=== PATIENT | male | born 1975 | race Caucasian/White ===

== ENCOUNTER 2017-05-20 23:14 | Emergency (ER) | payer OTHER, SELFPAY ==
[2017-05-20 23:40] VITALS: PULSE 78
[2017-05-20] MEDS ORDERED: DECADRON 10MG INJ. IM ONE (23:46)
--- NOTE | 2017-05-20 23:46 | ERPHSYRPT ---
- History of Present Illness Source: patient, family () Exam Limitations: clinical condition Physician History: "Patient with spreading blotchy elevated erythematous rash right lower posterior flank area with spread down into the gluteal area today. There are small water blisters involved with it. No previous history of such and no history significant of insect bite poison plant contact. Does not itch and burn no fever or chills and no pain. Timing/Duration: day(s) (3-4) Quality: other (no real discomfort) Location: other (As noted above right sacral iliac area down to right gluteal area) Possible Causes: no cause identified Associated Symptoms: blisters, change in skin texture, rash, No edema, No fever , No nasal congestion, No numbness, No pallor, No paresthesia, No petechiae Allergies/Adverse Reactions: Penicillins Allergy (Verified 05/20/17 23:16) Home Medications: Lisinopril/Hydrochlorothiazide [Lisinopril-Hctz 20-12.5 mg Tab] 1 tab PO DAILY 05/20/17 [History] Metoprolol Tartrate 50 mg [Lopressor 50 MG] 50 mg PO BID 05/20/17 [History ] Pravastatin Sodium 40 mg PO HS 05/20/17 [History] Hx Tetanus, Diphtheria Vaccination/Date Given: Yes (2006) - Review of Systems Constitutional: No Symptoms Eyes: No Symptoms Ears, Nose, & Throat: No Symptoms Respiratory: No Symptoms Cardiac: No Symptoms Abdominal/Gastrointestinal: No Symptoms Genitourinary Symptoms: No Symptoms Musculoskeletal: No Symptoms Skin: Rash (as noted in history of present illness) - Past Medical History Pertinent Past Medical History: Yes Neurological History: No Pertinent History ENT History: No Pertinent History Cardiac History: High Cholesterol, Hypertension Respiratory History: No Pertinent History Endocrine Medical History: No Pertinent History Musculoskeletal History: No Pertinent History GI Medical History: No Pertinent History History: No Pertinent History Psycho-Social History: No Pertinent History Male Reproductive Disorders: No Pertinent History - Past Surgical History Past Surgical History: No Neuro Surgical History: No Pertinent History Cardiac: No Pertinent History Respiratory: No Pertinent History Gastrointestinal: No Pertinent History Genitourinary: No Pertinent History Musculoskeletal: No Pertinent History Male Surgical History: No Pertinent History Other Surgical History: states he has had no surgeries - Social History Smoking Status: Former smoker Exposure to second hand smoke: Yes Drug Use: none Patient Lives Alone: Yes - Nursing Vital Signs Nursing Vital Signs: Initial Vital Signs Temperature 98.6 F 05/20/17 23:39 Pulse Rate 78 05/20/17 23:39 Respiratory Rate 20 05/20/17 23:39 Blood Pressure 150/77 05/20/17 23:39 O2 Sat by Pulse Oximetry 99 05/20/17 23:39 Pain Scale Pain Intensity 0 - Physical Exam General Appearance: no apparent distress Eye Exam: PERRL/EOMI Ears, Nose, Throat Exam: normal ENT inspection Neck Exam: normal inspection, non-tender, supple Respiratory Exam: normal breath sounds, lungs clear, No chest tenderness Cardiovascular Exam: regular rate/rhythm, normal heart sounds Gastrointestinal/Abdomen Exam: soft, normal bowel sounds, No tenderness Rectal Exam: deferred Back Exam: rash (raised to fluid erythematous rash from the belt line area right sacroiliac and down to the right proximal gluteal area with small vesi which were intact.) Extremity Exam: normal inspection, normal range of motion Neurologic Exam: alert, oriented x 3, cooperative, nml station & gait Skin Exam: rash (as noted above) Lymphatic Exam: No adenopathy SpO2 Interpretation: normal SpO2: 99 Oxygen Delivery: Room Air Ordered Tests: Medication Summary Discontinued Medications Generic Name Dose Route Start Last Admin Trade Name Elke PRN Reason Stop Dose Admin Dexamethasone Sodium Phosphate 10 mg 05/20/17 23:46 05/20/17 23:59 Decadron 10mg Inj. IM 05/20/17 23:47 10 mg STAT ONE Administration Dexamethasone Sodium Phosphate Confirm 05/20/17 23:51 Decadron 10mg Inj. Administered 05/20/17 23:52 Dose 10 mg .ROUTE .STK-MED ONE Hydrocortisone 30 gm 05/20/17 23:47 05/21/17 00:00 Cortisone 1% Cream TP 05/20/17 23:48 30 gm STAT ONE Administration - Progress Progress: unchanged Progress Note: 05/21/17 04:06Etiology of rashes unclear at this time as it is not pruritic or painful. Does seem to be spreading from the initial area has a raised erythematous confluent base with small vesicles superficially. Best diagnosis at this point is some form of contact dermatitis treated with IM Decadron Medrol Dosepak topical steroids with emphasis on criteria for return to ER and the importance of follow-up. Counseled pt/family regarding: diagnosis, need for follow-up - Departure Time of Disposition: 23:58 Departure Disposition: Home Clinical Impression: Contact dermatitis Qualifiers: Contact dermatitis type: unspecified Contact dermatitis trigger: unspecified trigger Qualified Code(s): L25.9 - Unspecified contact dermatitis, unspecified cause Condition: Stable Critical Care Time: No Referrals: PERRI CHAUDHARY [Primary Care Provider] - 05/22/17 Instructions: Contact Dermatitis Additional Instructions: It appears to be some kind of contact dermatitis to either a poison plant or material. Apply 1 percent hydrocortisone cream to the area 3 times a day. May keep covered with ABD dressings that may be purchased at pharmacies. If not significantly improved by Thursday follow-up with medical provider. Return to emergency room for fever chills severe pain.start Medrol cortisone prescription in the morning. Prescriptions: Methylprednisolone Packet [Medrol Dosepack] 4 mg PO UD #1 packet
[2017-05-20] MEDS ORDERED: CORTISONE 1% CREAM TP ONE (23:47)
[2017-05-20] MEDS ORDERED: DECADRON 10MG INJ. ONE (23:51)
[2017-05-21 00:20] VITALS: BP 153/81
[2017-05-21 04:07] VITALS: O2SAT 99
== END 2017-05-21 00:20 | disposition home or self-care (01) ==
LOC: ED 23:14
DX: L25.9 Unspecified contact dermatitis, unspecified cause (principal)
CPT/HCPCS: 96372; 99284; J1100; A9270-GY

== ENCOUNTER 2021-12-14 09:46 | Emergency (ER) | payer BC, OTHER ==
[2021-12-14] MEDS ORDERED: Adacel Vial IM ONE ×2 (10:11→10:12)
--- NOTE | 2021-12-14 10:22 | ERPHSYRPT ---
- History of Present Illness Time Seen by Provider: 12/14/21 10:05 Source: patient Exam Limitations: no limitations Patient Subjective Stated Complaint: Pt states " I was taking the trash out and cut my hand on something that was in the trash. I don't know if it was glass or anything." Triage Nursing Assessment: Pt alert and orientated x3, pt is not utd on tetanus shot, bleeding is controlled and R hand is bandaged up upon triage. Once pt in room and after wound cleaned up the wound is 1.5 cm Physician History: Patient is a 46-year-old male who was picking up a trash bag when something in the bag lacerated his palm of his right hand about 1.5 cm at the base of the index finger. He is not sure what it was his tetanus is not current. He has no other injuries or problems. Timing/Duration: today Quality: painful Severity: moderate Location: hands Associated Symptoms: denies symptoms Allergies/Adverse Reactions: Penicillins Allergy (Mild, Verified 12/14/21 09:57) Home Medications: Lisinopril/Hydrochlorothiazide [Lisinopril-Hctz 20-12.5 mg Tab] 1 tab PO DAILY 05/20/17 [History] Metoprolol Tartrate 50 mg [Lopressor 50 MG] 50 mg PO BID 05/20/17 [History] Pravastatin Sodium 40 mg PO HS 05/20/17 [History] Hx Tetanus, Diphtheria Vaccination/Date Given: No (2006) Hx Influenza Vaccination/Date Given: No Hx Pneumococcal Vaccination/Date Given: No Immunizations Up to Date: No Travel Risk - International Travel Have you traveled outside of the country in past 3 weeks: No - Coronavirus Screening Are you exhibiting any of the following symptoms?: No Close contact with a COVID-19 positive Pt in past 14-21 Days: No - Vaccine Status Have you recieved a Covid-19 vaccination: No - Review of Systems Constitutional: No Fever, No Chills Eyes: No Symptoms Ears, Nose, & Throat: No Symptoms Respiratory: No Cough, No Dyspnea Cardiac: No Chest Pain, No Edema, No Syncope Abdominal/Gastrointestinal: No Abdominal Pain, No Nausea, No Vomiting, No Diarrhea Genitourinary Symptoms: No Dysuria Musculoskeletal: No Back Pain, No Neck Pain Skin: No Rash Neurological: No Dizziness, No Focal Weakness, No Sensory Changes Psychological: No Symptoms Endocrine: No Symptoms All Other Systems: Reviewed and Negative - Past Medical History Pertinent Past Medical History: Yes Neurological History: No Pertinent History ENT History: No Pertinent History Cardiac History: High Cholesterol, Hypertension Respiratory History: No Pertinent History Endocrine Medical History: No Pertinent History Musculoskeletal History: No Pertinent History GI Medical History: No Pertinent History History: No Pertinent History Psycho-Social History: No Pertinent History Male Reproductive Disorders: No Pertinent History - Past Surgical History Past Surgical History: No Neuro Surgical History: No Pertinent History Cardiac: No Pertinent History Respiratory: No Pertinent History Gastrointestinal: No Pertinent History Genitourinary: No Pertinent History Musculoskeletal: No Pertinent History Male Surgical History: No Pertinent History Other Surgical History: states he has had no surgeries - Social History Smoking Status: Former smoker Exposure to second hand smoke: Yes Drug Use: none Patient Lives Alone: Yes - Nursing Vital Signs Nursing Vital Signs: Initial Vital Signs Temperature 98.4 F 12/14/21 09:57 Pulse Rate 64 12/14/21 09:57 Respiratory Rate 16 12/14/21 09:57 Blood Pressure 147/75 12/14/21 09:57 O2 Sat by Pulse Oximetry 100 12/14/21 09:57 Pain Scale Pain Intensity 3 - Physical Exam General Appearance: no apparent distress, alert Eye Exam: PERRL/EOMI, eyes nml inspection Ears, Nose, Throat Exam: normal ENT inspection, pharynx normal, moist mucous membranes Neck Exam: normal inspection, non-tender, supple, full range of motion Respiratory Exam: airway intact, No respiratory distress Back Exam: normal inspection, normal range of motion, No CVA tenderness, No vertebral tenderness Extremity Exam: normal inspection, normal range of motion Neurologic Exam: alert, oriented x 3, cooperative, normal mood/affect, sensation nml, No motor deficits Skin Exam: normal color, warm, dry, laceration (Laceration superficial 1.5 cm right palm surface at the base of the index finger) SpO2 Interpretation: normal SpO2: 100 O2 Delivery: Room Air Procedures - Laceration/Wound Repair Right Hand Time of Procedure: 10:21 Wound Location: Right, hand Wound Length (cm): 1.5 Wound's Depth, Shape: superficial, linear Wound Explored: clean Irrigated: Yes Hibiclens Prep: Yes Anesthesia: 1% Lidocaine Volume Anesthetic (ccs): 2 Wound Debrided: minimal Wound Repaired With: sutures Suture Size/Type: 5-0, nylon Number of Sutures: 2 Layer Closure?: No Sterile Dressing Applied?: Yes Splint Applied?: No - Course Nursing assessment & vital signs reviewed: Yes Ordered Tests: Medication Summary Discontinued Medications Generic Name Dose Route Start Last Admin Trade Name Freq PRN Reason Stop Dose Admin Diphtheria/Tetanus/Acell Pertussis 0.5 ml 12/14/21 10:11 12/14/21 10:16 Tdap --Diph,Pertuss(Acell),Tet Vac/Pf 0.5 Ml Vial IM 12/14/21 10:12 0.5 ml .ONCE ONE Administration Diphtheria/Tetanus/Acell Pertussis Confirm 12/14/21 10:12 Tdap --Diph,Pertuss(Acell),Tet Vac/Pf 0.5 Ml Vial Administered 12/14/21 10:13 Dose 0.5 ml IM .STK-MED ONE - Progress Progress: improved - Departure Departure Disposition: Home Clinical Impression: Laceration of right hand Condition: Stable Critical Care Time: No Referrals: PERRI CHAUDHARY [Primary Care Provider] - Follow up/PCP as directed Instructions: Laceration Repair With Stitches (DC)
[2021-12-14 10:39] VITALS: BP 168/70; PULSE 68; O2SAT 98
== END 2021-12-14 10:45 | disposition home or self-care (01) ==
LOC: ED 09:46
DX: S61.411A Laceration without foreign body of right hand, initial encounter (principal); W45.8XXA Other foreign body or object entering through skin, initial encounter; Y93.E9 Activity, other interior property and clothing maintenance; E78.5 Hyperlipidemia, unspecified; I10 Essential (primary) hypertension; Z79.899 Other long term (current) drug therapy
CPT/HCPCS: 12001; 90471; 90715; 99283

== ENCOUNTER 2023-04-18 12:14 | Emergency (ER) | payer BC, OTHER ==
[2023-04-18 12:31] VITALS: BP 159/79; PULSE 67; O2SAT 100
[2023-04-18] MEDS ORDERED: Kenalog-40 IM ONE (14:00)
--- NOTE | 2023-04-18 14:00 | ERPHSYRPT ---
- History of Present Illness Time Seen by Provider: 04/18/23 12:25 Source: patient Exam Limitations: no limitations Patient Subjective Stated Complaint: Pt injured left foot last week and it started to swell and hurt 2 days ago and it started out on the lateral side and the pain and swelling has moved to the medial side and big toe Triage Nursing Assessment: Pt was brought to the ER by his daughter, hypertensive, rates pain as 3/10, foot appears to look like he has gout, pt has had episodes of gout in the past, pt's foot swelled quite large while he was at work due to being on his feet, pt thought that the foot swelled due to him injuring it last week, pulses normal, pain with palpatation, pain with weightbearing, doesn't appear to be in any distress Physician History: Patient is a 48-year-old white male who presents with a complaint of injury to his left foot approximately a week ago on the lateral aspect. He seemed to do better and then in the last 24 hours has noted redness and swelling over the first metatarsal phalangeal joint of that foot. He does have a history of acute gouty arthritis. Method of Injury: direct blow Occurred: yesterday Quality: aching, burning Severity of Pain-Max: moderate Severity of Pain-Current: moderate Lower Extremities Pain: 1st toe: left Modifying Factors: Improves With: nothing Associated Symptoms: other (Pain with palpation) Allergies/Adverse Reactions: Penicillins Allergy (Mild, Verified 04/18/23 12:30) Home Medications: Lisinopril/Hydrochlorothiazide [Lisinopril-Hctz 20-12.5 mg Tab] 1 tab PO DAILY 0 05/20/17 [History] Metoprolol Tartrate 50 mg [Lopressor 50 MG] 50 mg PO BID 05/20/17 [History] Pravastatin Sodium 40 mg PO HS 05/20/17 [History] Hx Tetanus, Diphtheria Vaccination/Date Given: No (2006) Hx Influenza Vaccination/Date Given: No Hx Pneumococcal Vaccination/Date Given: No Travel Risk - International Travel Have you traveled outside of the country in past 3 weeks: No - Coronavirus Screening Are you exhibiting any of the following symptoms?: No Close contact with a COVID-19 positive Pt in past 14-21 Days: No - Vaccine Status Have you recieved a Covid-19 vaccination: No - Review of Systems Constitutional: No Fever, No Chills Eyes: No Symptoms Ears, Nose, & Throat: No Symptoms Respiratory: No Cough, No Dyspnea Cardiac: No Chest Pain, No Edema, No Syncope Abdominal/Gastrointestinal: No Abdominal Pain, No Nausea, No Vomiting, No Diarrhea Genitourinary Symptoms: No Dysuria Musculoskeletal: Joint Pain, No Back Pain, No Neck Pain Skin: No Rash Neurological: No Dizziness, No Focal Weakness, No Sensory Changes Psychological: No Symptoms Endocrine: No Symptoms All Other Systems: Reviewed and Negative - Past Medical History Pertinent Past Medical History: Yes Neurological History: No Pertinent History ENT History: No Pertinent History Cardiac History: High Cholesterol, Hypertension Respiratory History: No Pertinent History Endocrine Medical History: No Pertinent History Musculoskeletal History: No Pertinent History GI Medical History: No Pertinent History History: No Pertinent History Psycho-Social History: No Pertinent History Male Reproductive Disorders: No Pertinent History - Past Surgical History Past Surgical History: No Neuro Surgical History: No Pertinent History Cardiac: No Pertinent History Respiratory: No Pertinent History Gastrointestinal: No Pertinent History Genitourinary: No Pertinent History Musculoskeletal: No Pertinent History Male Surgical History: No Pertinent History Other Surgical History: states he has had no surgeries - Social History Smoking Status: Former smoker Exposure to second hand smoke: Yes Drug Use: none Patient Lives Alone: No - Nursing Vital Signs Nursing Vital Signs: Initial Vital Signs Temperature 97.6 F 04/18/23 12:21 Pulse Rate 67 04/18/23 12:21 Blood Pressure 159/79 04/18/23 12:21 O2 Sat by Pulse Oximetry 100 04/18/23 12:21 Pain Scale Pain Intensity 3 - Physical Exam General Appearance: alert Eyes, Ears, Nose, Throat Exam: moist mucous membranes Neck Exam: non-tender, supple Cardiovascular/Respiratory Exam: chest non-tender, normal breath sounds, regular rate/rhythm, no respiratory distress Gastrointestinal/Abdominal Exam: non-tender, guarding Back Exam: normal inspection, No vertebral tenderness Hips Exam: bilateral: non-tender, normal inspection, normal range of motion Legs Exam: bilateral leg: non-tender, normal inspection, normal range of motion Knees Exam: bilateral knee: non-tender, normal inspection, normal range of motion Ankle Exam: bilateral ankle: non-tender, normal inspection, normal range of motion Foot Exam: left foot: bone tenderness, limited range of motion, pain, soft tissue tenderness, swelling Neuro/Tendon Exam: normal sensation, normal motor functions Mental Status Exam: alert, oriented x 3, cooperative Skin Exam: normal color, warm, dry SpO2: 100 - Course Nursing assessment & vital signs reviewed: Yes - Radiology Exams Left Foot X-ray Interpretation: Interpreted by me, Negative Ordered Tests: Active Orders 24 hr Category Date Time Status FOOT (MINIMUM 3 VIEWS) Stat Exams 04/18/23 12:51 Taken - Progress Progress: unchanged Medical Desision Making - Diagnostic Testing Radiological Interpretation: Interpreted by me - Risk of complications Minimal Risk: Minimal risk of morbidity - Departure Departure Disposition: Home Clinical Impression: Acute gouty arthritis Condition: Stable Critical Care Time: No Referrals: PERRI CHAUDHARY [Primary Care Provider] - Follow up/PCP as directed Instructions: Gout (DC) Prescriptions: Prednisone 10 mg [Deltasone 10 mg] 20 mg PO TID 5 Days #30 tablet
[2023-04-18] MEDS ORDERED: TORAdol 30 mg Injection IM ONE (14:01)
[2023-04-18] MEDS ORDERED: Kenalog-40 ONE (14:04)
[2023-04-18] MEDS ORDERED: TORAdol 30 mg Injection ONE (14:04)
--- NOTE | 2023-04-18 21:37 | XRAY ---
Indication: Pain following injury. Comparison: July 19, 2013 3 nonweightbearing views left foot again demonstrates tiny plantar heel spur. No new/acute bony, articular, or soft tissue abnormalities.
== END 2023-04-18 14:48 | disposition home or self-care (01) ==
LOC: ED 12:14
DX: M10.9 Gout, unspecified (principal); M79.89 Other specified soft tissue disorders; E78.5 Hyperlipidemia, unspecified; I10 Essential (primary) hypertension; Z79.52 Long term (current) use of systemic steroids; Z79.899 Other long term (current) drug therapy; Z28.310 Unvaccinated for COVID-19
CPT/HCPCS: 73630; 96372; 99283; J1885; J3301